=== PATIENT | female | born 1950 | race Caucasian/White ===

== ENCOUNTER → 2022-12-08 | Outpatient (CLI) | payer MEDICARE | END | disposition home or self-care (01) | LOC: RAH 07:36 | PROVIDERS: ATTEND Nurse Practitioner Adult Health | DX: R10.84 Generalized abdominal pain (principal); R10.2 Pelvic and perineal pain; K76.89 Other specified diseases of liver | CPT/HCPCS: 76700; 76856 ==

== ENCOUNTER → 2023-09-26 | Outpatient (CLI) | payer MEDICARE | END | disposition home or self-care (01) | LOC: RAH 11:18 | PROVIDERS: ATTEND Nurse Practitioner Adult Health | DX: N28.1 Cyst of kidney, acquired (principal); N32.89 Other specified disorders of bladder; R31.9 Hematuria, unspecified | CPT/HCPCS: 76770 ==

== ENCOUNTER → 2024-04-01 | Outpatient (CLI) | payer MEDICARE | END | disposition home or self-care (01) | LOC: RAH 14:36 | PROVIDERS: ATTEND Internal Medicine Cardiovascular Disease | DX: I34.0 Nonrheumatic mitral (valve) insufficiency (principal); R01.1 Cardiac murmur, unspecified | CPT/HCPCS: 93306 ==